=== PATIENT | female | born 1990 | race Hispanic/Latino ===

== ENCOUNTER 2019-04-24 18:45 | Emergency (ER) | payer OTHER ==
[2019-04-24] MEDS ORDERED: Acetaminophen 500 MG TAB ONE (19:19)
--- NOTE | 2019-04-24 19:53 | CT ---
CT cervical spine without contrast: 04/24/2019 COMPARISON: None available HISTORY: Fall, trauma, pain TECHNIQUE: Axial CT imaging at 2.5 mm intervals through the cervical spine without contrast. Coronal and sagittal reformatted imaging obtained. FINDINGS: C1 ring is intact. Imaged lung apices unremarkable. No evidence for fracture or dislocation. No prevertebral soft tissue swelling. No anterolisthesis or retrolisthesis. Craniocervical junction, atlantoaxial interspace, dens, and cervicothoracic junction appear unremarkable. IMPRESSION: No acute findings.
[2019-04-24 20:04] LABS: Pregnancy Test - Urine (BHCG) Negative (Negative); Pregu Control Background? CLEAR/WHITE (CLR/WHITE); Pregu Control Bar Appear? YES (CONTROL BAR); Specific Gravity 1.013 (1.002-1.036)
== END 2019-04-24 20:25 ==
LOC: EEVIPCON 18:45 → ERS 18:45
DX: S50.02XA Contusion of left elbow, initial encounter (principal); M54.5 Low back pain; R51 Headache; W18.30XA Fall on same level, unspecified, initial encounter
CPT/HCPCS: 51701; 72125; 81025; A4353